=== PATIENT | female | born 1995 | race Caucasian/White ===

== ENCOUNTER 2023-07-31 19:44 | Emergency (ER) | payer SELFPAY ==
[~2023-07-31] VITALS: Ht 160 cm; Wt 65.0 kg
[2023-07-31 19:48] VITALS: BP 118/80; RESP 14; TEMP 98; O2SAT 100
[2023-07-31 19:49] VITALS: PULSE 91
== END 2023-07-31 20:20 | disposition home or self-care (01) ==
LOC: ER 19:44
DX: F41.9 Anxiety disorder, unspecified (principal); R11.10 Vomiting, unspecified
CPT/HCPCS: 99281